=== PATIENT | female | born 1965 | race Caucasian/White ===

== ENCOUNTER 2018-10-30 20:05 | Inpatient (IN) | payer MEDICAID, OTHER ==
--- NOTE | 2018-10-30 20:05 | EDPHY ---
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 She comes by ambulance today reporting a 2 day history of lower abdominal pain and vomiting. Her significant other states that her vomitus has been black. She has not vomited today. She thinks that she might have a urinary tract infection , based upon the way that she feels. She has had UTIs in the past. She has been having difficulty urinating. She has not had a bowel movement for couple of days. Pain is bilateral lower abdominal, dull aching sensation. No back pain. REVIEW OF SYSTEMS: A ten system review of systems was performed and is negative with the exception of the items mentioned in the HPI. Past medical history: 1. Type 2 diabetes, recently started on insulin 2. Left hemiplegia secondary to stroke 3. Blindness 4. Chronic kidney disease next 5. Hypertension Past surgical history: Av fistula right upper extremity, cataract, vitrectomy, section Family history is positive for diabetes and coronary artery disease Social history: She is here with her significant other of 18 years. They are new to this area, have been visiting friends but think that they will relocate here. She has no medical care locally. She does not use tobacco products. She does not drink alcohol. No illicit drugs. General Appearance: Alert. Vital signs reviewed. Blood pressure 172/107. Eyes: Pupils equal and round, no conjunctival injection, no discharge. Anicteric. ENT, Mouth: Mucous membranes are moist, no oropharyngeal erythema or edema. Poor dentition. Neck: No meningeal signs. Respiratory: Lungs are clear to auscultation; no wheezes, rales, or rhonchi. Cardiovascular: Regular rate and rhythm; no murmur, rub, or gallop. Gastrointestinal: Abdomen is soft and nontender, no masses or organomegaly, bowel sounds normal. Skin: Warm and dry, no rashes on exposed skin, normal color. Yellow-green bruises on distal left lower extremity and just above knee laterally on the left. Back: Nontender to palpation over the thoracolumbar spine. No CVAT. Extremities: No lower extremity edema, no calf tenderness or swelling. Right AV fistula with good thrill. Neurological: Alert and oriented. Patient blind. Moving right upper lower extremity easily and equally. Left upper extremity with contracture. Moving right upper and right lower extremity without difficulty. Psychiatric: Normal affect. Constitutional: Initial Vital Signs Temperature (C) 36.7 C 10/30/18 20:17 Heart Rate 85 10/30/18 20:17 Respiratory Rate 16 10/30/18 20:17 Blood Pressure 172/107 H 10/30/18 20:17 O2 Sat (%) 94 10/30/18 20:17 O2 Delivery Mode Room Air Allergies/Adverse Reactions: No Known Allergies Allergy (Unverified 10/30/18 20:34) Home Medications: Medication Instructions Recorded Aspirin EC [Aspirin EC 81 mg (*)] 81 mg PO DAILY 10/30/18 Atorvastatin Calcium [Lipitor 10 10 mg PO HS 10/30/18 mg (*)] Cholecalciferol Vit D3 [Vitamin D3 1,000 units PO DAILY 10/30/18 (*)] Furosemide [Lasix 40 MG (*)] 40 mg PO DAILY 10/30/18 Gabapentin [Neurontin 300 MG (*)] 300 mg PO TID 10/30/18 Insulin Glargine [Lantus 100 10 units SC DAILY 10/30/18 UNITS/ML] Metoprolol Succinate 25 mg PO HS 10/30/18 Sodium Bicarbonate [Na Bicarb] 325 mg PO BID 10/30/18 Vitamin A Palmitate [Vitamin A] 10,000 unit PO 10/30/18 amLODIPine BESYLATE [Amlodipine 10 mg PO DAILY 10/30/18 Besylate] glipiZIDE [Glipizide] 10 mg PO DAILY 10/30/18 hydrALAZINE [Apresoline 10 mg (*)] 10 mg PO TID 10/30/18 Medical Decision Making ED Course/Re-evaluation: 52-year-old female with insulin-dependent diabetes, CKD, HTN, blindness,and left malcolm paresis secondary to stroke. She has not urinated much for the last couple of days and thinks that she might have a bladder infection. Martin catheter was placed with a return of about 300 cc of clear urine. Urinalysis does not indicate urine infection. She is noted to be hyponatremic with a sodium 128. Her BUN is 70 with a creatinine of 3.9. Potassium is 3. I do not know what her previous values were. Will try to obtain this information from the hospital where she was last seen. She has apparently not had any vomiting today, but yesterday her SO noted that her vomit was black. She did not vomit in the emergency department. Hemoglobin and hematocrit are 11.5 and 32.9. I do not think that she is experiencing GI bleeding. She was given 500 mL normal saline in the emergency department. At 8:45 p.m. I spoke with the patient and her significant other and informed them that it was likely that she would need to be admitted to the hospital. She became anxious and tearful and stated that she did not want to stay in the hospital. However, she has agreed to do so. It appears that she has CKD, unclear if it is worse today. She is likely dehydrated because of her recent vomiting, which could be due to uremia, perhaps a viral infection, or GI bleeding. Abdominal exam is unremarkable, I do not suspect intra-abdominal infection such as appendicitis. UA not suggestive of UTI. Decrease urine output might be due to advancing kidney disease or to dehydration. - Data Points Laboratory Results: Laboratory Results 10/30/18 20:20 10/30/18 20:20 Medications Given: Amlodipine Besylate (Norvasc) 10 mg PO DAILY SINDY Stop: 04/29/19 08:59 Last Admin: 10/31/18 09:40 Dose: 10 mg Aspirin Buffered (Aspirin Ec) 81 mg PO DAILY SINDY Stop: 04/29/19 08:59 Last Admin: 10/31/18 09:40 Dose: 81 mg Atorvastatin Calcium (Lipitor) 10 mg PO HS SINDY Stop: 04/28/19 22:29 Last Admin: 10/30/18 23:16 Dose: 10 mg Cholecalciferol (Vitamin D) 1,000 units PO DAILY SINDY Stop: 04/29/19 08:59 Last Admin: 10/31/18 09:40 Dose: 1,000 units Gabapentin (Neurontin) 300 mg PO TID SINDY Stop: 04/28/19 22:29 Last Admin: 10/31/18 17:26 Dose: 300 mg Glipizide (Glucotrol) 10 mg PO DAILY SINDY Stop: 04/29/19 08:59 Last Admin: 10/31/18 09:40 Dose: 10 mg Hydralazine HCl (Apresoline) 10 mg PO TID SINDY Stop: 04/28/19 22:29 Last Admin: 10/31/18 17:26 Dose: 10 mg Insulin Glargine (Lantus Syringe) 10 units SC DAILY SINDY Stop: 04/29/19 08:59 Last Admin: 10/31/18 09:41 Dose: 10 units Insulin Human Lispro (Humalog Lispro) 0 unit SC TIDMEAL SINDY PRN Reason: Protocol Stop: 04/29/19 07:59 Last Admin: 10/31/18 17:29 Dose: 4 units Metoprolol Succinate (Toprol Xl) 25 mg PO HS SINDY Stop: 04/28/19 22:29 Last Admin: 10/30/18 23:16 Dose: 25 mg Sodium Bicarbonate (Na Bicarb) 325 mg PO BID SINDY Stop: 04/28/19 22:29 Last Admin: 10/31/18 09:40 Dose: 325 mg Discontinued Medications Furosemide (Lasix) 40 mg PO DAILY SINDY Stop: 04/29/19 08:59 Last Admin: 10/31/18 09:40 Dose: 40 mg Sodium Chloride (Ns) 1,000 mls @ 0 mls/hr IV EDNOW ONE; Wide Open PRN Reason: Protocol Stop: 10/30/18 20:14 Last Admin: 10/30/18 21:40 Dose: Not Given Sodium Chloride (Ns) 500 mls @ 0 mls/hr IV EDNOW ONE; Wide Open PRN Reason: Protocol Stop: 10/30/18 20:51 Last Admin: 10/30/18 20:52 Dose: 500 mls Sodium Chloride (Ns) 1,000 mls @ 100 mls/hr IV ONCE ONE Stop: 10/31/18 08:29 Last Admin: 10/30/18 23:54 Dose: 1,000 mls Lorazepam (Ativan Injection) 0.5 mg IVP EDNOW ONE Stop: 10/30/18 21:07 Last Admin: 10/30/18 21:14 Dose: 0.5 mg Potassium Chloride (Klor-Con) 30 meq PO Q4 SINDY Stop: 10/31/18 18:01 Last Admin: 10/31/18 17:27 Dose: 30 meq Departure - Departure Disposition: [facility] Acute Clinical Impression: Hyponatremia Chronic kidney disease (CKD) Qualifiers: Chronic kidney disease stage: unspecified stage Qualified Code(s): N18.9 - Chronic kidney disease, unspecified Condition: Fair
[2018-10-30] MEDS ORDERED: NS 1,000 ML IV ONE ×2 (20:13→22:30)
[2018-10-30 20:29] LABS: PLATELET COUNT 292 10^3/uL (150-400)
[2018-10-30] MEDS ORDERED: NS 500 ML IV ONE (20:50)
[2018-10-30] MEDS ORDERED: LORazepam 2 MG/ML INJ IVP ONE (21:06)
[2018-10-30] MEDS ORDERED: HYDROCODONE/APAP 5/325 TAB PO PRN (22:28)
[2018-10-30] MEDS ORDERED: LORazepam 2 MG/ML INJ IVP PRN (22:28)
[2018-10-30] MEDS ORDERED: PROMETHAZINE HCL 25 MG/ML INJ IVP PRN (22:28)
[2018-10-30] MEDS ORDERED: ONDANSETRON 4 MG/2 ML VIAL IVP PRN (22:28)
[2018-10-30] MEDS ORDERED: HYDROmorphONE/DILAUDID 1 MG/ML INJ IVP PRN (22:28)
[2018-10-30] MEDS ORDERED: ONDANSETRON DISINTEGRATING 4 MG TAB PO PRN (22:28)
[2018-10-30] MEDS ORDERED: oxyCODONE IR 5 MG TAB PO PRN (22:28)
[2018-10-30] MEDS ORDERED: LORazepam 0.5 MG TAB PO PRN (22:28)
[2018-10-30] MEDS ORDERED: ACETAMINOPHEN 325 MG TAB PO PRN (22:28)
[2018-10-30] MEDS ORDERED: D50W 25 GM/50 ML SYR IVP PRN (22:31)
--- NOTE | 2018-10-30 22:37 | PDGENHP ---
History and Physical - Chief Complaint n/v/decreased urine output - History of Present Illness 52 yo F with PMH of CKD stage 4, IDDM poorly controlled, poorly controlled HTN and multiple CVAs (she reports at least 4) with resultant left sided hemiparesis presenting after moving here recently from [place] with complaints of 2 days of n/v and poor po intake as well as no urine output for the last 2 days. Patient notes that she had been vomiting profusely for the last 2 days including some vomit that appeared black, but this stopped today and she has not vomited all day. She does have CKD and recently had AV fistula placed for likely dialysis in the near future but so far has not required HD. She normally makes urine but for the last 2 days she reports having no urine output. A graham was placed in the ER and yielded 300ml of urine. She denies any recent chest pain, she has not had fever or chills, she has not had other urinary symptoms such as dysuria. She does not know what her baseline creatinine is but some records sent from [place] that showed a recent creatinine of 4.3, in ER noted to be 3.9. She is legally blind and wheelchair bound and is accompanied by her friend who helps to care for her. They have recently moved to [facility] from [place] but while in the ER patient continues to say she wants to go home to her [facility]. History Information - Allergies/Home Medication List Allergies/Adverse Reactions: No Known Allergies Allergy (Unverified 10/30/18 20:34) Home Medications: Aspirin EC [Aspirin EC 81 mg (*)] 81 mg PO DAILY 10/30/18 [Last Taken 10/30/18] Atorvastatin Calcium [Lipitor 10 mg (*)] 10 mg PO HS 10/30/18 [Last Taken ] Cholecalciferol Vit D3 [Vitamin D3 (*)] 1,000 units PO DAILY 10/30/18 [Last Taken 10/30/18] Furosemide [Lasix 40 MG (*)] 40 mg PO DAILY 10/30/18 [Last Taken 10/30/18] Gabapentin [Neurontin 300 MG (*)] 300 mg PO TID 10/30/18 [Last Taken 10/30/18] Insulin Glargine [Lantus 100 UNITS/ML] 10 units SC DAILY 10/30/18 [Last Taken ] Metoprolol Succinate 25 mg PO HS 10/30/18 [Last Taken Unknown] Sodium Bicarbonate [Na Bicarb] 325 mg PO BID 10/30/18 [Last Taken 10/30/18] Vitamin A Palmitate [Vitamin A] 10,000 unit PO 10/30/18 [Last Taken 10/30/18] amLODIPine BESYLATE [Amlodipine Besylate] 10 mg PO DAILY 10/30/18 [Last Taken ] glipiZIDE [Glipizide] 10 mg PO DAILY 10/30/18 [Last Taken 10/30/18] hydrALAZINE [Apresoline 10 mg (*)] 10 mg PO TID 10/30/18 [Last Taken 10/30/18] I have personally reviewed and updated: family history, medical history, social history, surgical history - Past Medical History CVA (x 4, residual left hemiparesis), diabetes type 2 (insulin dependent), ESRD (not yet on HD), hypertension, hyperlipidemia, psychiatric history (anxiety) Additional medical history: blind - Surgical History Additional surgical history: AV fistula formation. cataracts. c section. vitrectomy - Family History Positive for: diabetes type I (multiple family members including father, brother and sister) - Social History Smoking Status: Never smoked Alcohol Use: None Drug Use: None Additional social history: originally from [place], recently moved to [facility] with friend Review of Systems Review of Systems: ROS: 10pt was reviewed & negative except for what was stated in HPI & below Physical Exam Physical Exam: Temp Pulse Resp BP Pulse Ox 36.7 C 75 16 156/96 H 99 10/30/18 22:10 10/30/18 22:10 10/30/18 22:10 10/30/18 22:10 10/30/18 22:10 Constitutional: chronically ill appearing, unkempt Eyes: other (e/o prior surgeries, bilateral blindness) Ears, Nose, Mouth, Throat: poor dentition, dry mucous membranes Cardiovascular: regular rate and rhythym, no murmur, rub, or gallop, edema Respiratory: no respiratory distress, no rales or rhonchi, clear to auscultation Gastrointestinal: normoactive bowel sounds, soft, non-tender abdomen Genitourinary: no bladder tenderness, graham in urethra Skin: warm, normal color Musculoskeletal: full muscle strength Neurologic: AAOx3 Psychiatric: anxious, agitated, poor insight, poor judgement Lab Data & Imaging Review 10/30/18 20:20 10/30/18 20:20 WBC 12.44 10^3/uL (3.80-9.50) H 10/30/18 20:20 RBC 3.87 10^6/uL (4.18-5.33) L 10/30/18 20:20 Hgb 11.5 g/dL (12.6-16.3) L 10/30/18 20:20 Hct 32.9 % (38.0-47.0) L 10/30/18 20:20 MCV 85.0 fL (81.5-99.8) 10/30/18 20:20 MCH 29.7 pg (27.9-34.1) 10/30/18 20:20 MCHC 35.0 g/dL (32.4-36.7) 10/30/18 20:20 RDW 12.5 % (11.5-15.2) 10/30/18 20:20 Plt Count 292 10^3/uL (150-400) 10/30/18 20:20 MPV 9.8 fL (8.7-11.7) 10/30/18 20:20 Neut % (Auto) 68.5 % (39.3-74.2) 10/30/18 20:20 Lymph % (Auto) 23.2 % (15.0-45.0) 10/30/18 20:20 Ector % (Auto) 7.7 % (4.5-13.0) 10/30/18 20:20 Eos % (Auto) 0.2 % (0.6-7.6) L 10/30/18 20:20 Baso % (Auto) 0.2 % (0.3-1.7) L 10/30/18 20:20 Nucleat RBC Rel Count 0.0 % (0.0-0.2) 10/30/18 20:20 Absolute Neuts (auto) 8.52 10^3/uL (1.70-6.50) H 10/30/18 20:20 Absolute Lymphs (auto) 2.89 10^3/uL (1.00-3.00) 10/30/18 20:20 Absolute Monos (auto) 0.96 10^3/uL (0.30-0.80) H 10/30/18 20:20 Absolute Eos (auto) 0.02 10^3/uL (0.03-0.40) L 10/30/18 20:20 Absolute Basos (auto) 0.02 10^3/uL (0.02-0.10) 10/30/18 20:20 Absolute Nucleated RBC 0.00 10^3/uL (0-0.01) 10/30/18 20:20 Immature Gran % 0.2 % (0.0-1.1) 10/30/18 20:20 Immature Gran # 0.03 10^3/uL (0.00-0.10) 10/30/18 20:20 Sodium 128 mEq/L (135-145) L 10/30/18 20:20 Potassium 3.0 mEq/L (3.5-5.2) L 10/30/18 20:20 Chloride 95 mEq/L (97-110) L 10/30/18 20:20 Carbon Dioxide 19 mEq/l (22-31) L 10/30/18 20:20 Anion Gap 14 mEq/L (6-14) 10/30/18 20:20 BUN 75 mg/dL (7-23) H 10/30/18 20:20 Creatinine 3.9 mg/dL (0.6-1.0) H 10/30/18 20:20 Estimated GFR 12 10/30/18 20:20 Glucose 227 mg/dL (70-100) H 10/30/18 20:20 Calcium 8.2 mg/dL (8.5-10.4) L 10/30/18 20:20 Beta HCG, Qual NEGATIVE 10/30/18 20:20 Urine Color PALE YELLOW 10/30/18 20:30 Urine Appearance CLEAR 10/30/18 20:30 Urine pH 8.0 (5.0-7.5) H 10/30/18 20:30 Ur Specific [place] 1.012 (1.002-1.030) 10/30/18 20:30 Urine Protein 3+ (NEGATIVE) H 10/30/18 20:30 Urine Ketones TRACE (NEGATIVE) H 10/30/18 20:30 Urine Blood NEGATIVE (NEGATIVE) 10/30/18 20:30 Urine Nitrate NEGATIVE (NEGATIVE) 10/30/18 20:30 Urine Bilirubin NEGATIVE (NEGATIVE) 10/30/18 20:30 Urine Urobilinogen NEGATIVE EU (0.2-1.0) 10/30/18 20:30 Ur Leukocyte Esterase NEGATIVE (NEGATIVE) 10/30/18 20:30 Urine RBC 1-3 /hpf (0-3) 10/30/18 20:30 Urine WBC 1-3 /hpf (0-3) 10/30/18 20:30 Ur Epithelial Cells TRACE /lpf (NONE-1+) 10/30/18 20:30 Urine Glucose 3+ (NEGATIVE) H 10/30/18 20:30 Assessment & Plan Assessment: Chronic kidney disease (CKD) (Acute) Hyponatremia (Acute) 52 yo F with hx of multiple CVA, DM2--insulin dependent, ESRD not yet on HD presenting with no urine output reportedly x 2 days following several days of n/ v # ESRD: presumably due to DM/HTN both of which have been poorly controlled. patient has AV fistula in place but states she has not yet required HD, on review of old records most recent creatinine found of 4.3 and now 3.9. Graham revealed 300ml urine. Will monitor overnight, will provide 1L NS and monitor UOP. Renal consulted. No indication for urgent HD currently. # n/v: seems to have resolved, patient states no vomiting today, reports there was black vomit yesterday concerning for GI bleed so if recurs will need GI consultation # DM2: patient reports snf poor control, she was only diagnosed in the last year she states but believes she likely had DM for years. Currently on insulin, will continue her home regimen as well as SSI, A1c pending # HTN: patient notes this too has been poorly controlled. BP has been 150-170 systolic so far here, will resume metoprolol, amlodipine, hydralazine and lasix and monitor # CVA/recurrent: with residual left hemiparesis that is unchanged from baseline , she is wheelchair bound at baseline, continue statin and asa # anxiety: prn benzos as needed # blindness # IP status, will need > 48 hours stay for eval/mgmt of above Patient new to my care. Old records reviewed and summarized as above. Care plan reviewed with ER doctor and further hx obtained from patients friends present at bedside.
[2018-10-30] MEDS: SODIUM BICARBONATE 650 MG TAB PO SCH (23:15)
[2018-10-30] MEDS: METOPROLOL SUCCINATE XR 25 MG TAB PO SCH (23:16)
[2018-10-30] MEDS: GABAPENTIN 300 MG CAP PO SCH (23:16)
[2018-10-30] MEDS: hydrALAZINE 10 MG TAB PO SCH (23:16)
[2018-10-30] MEDS: ATORVASTATIN CALCIUM 10 MG TAB PO SCH (23:16)
[2018-10-31 05:10] LABS: PLATELET COUNT 236 10^3/uL (150-400)
--- NOTE | 2018-10-31 06:20 | PDMN ---
Medical Necessity Medical necessity: Pt meets inpt criteria per MD order and MCG 52 y/o w/CKD stage 4, poorly controlled IDDM and HTN, mult CVAs w/resultant L sided hemiparesis presenting w/2 days of N/V, poor PO intake, and no urine output for last 2 days, admitted w/acute on chronic ESRD, HTN, and hyponatremia Na 128, creatinine 3.0, abnormal UA. Recent AV fistula placement (has not required HD yet). Other comorbidities include anxiety, blindness, and wc bound. Anticipate> 2 MN for ongoing eval/management of above.
[2018-10-31] MEDS: INSULIN LISPRO 100 UNIT/ML SC SCH ×3 (08:34→17:29)
[2018-10-31] MEDS ORDERED: FUROSEMIDE 40 MG TAB PO SCH (09:00)
[2018-10-31] MEDS: CHOLECALCIFEROL VIT D3 1,000 UNITS TAB PO SCH (09:40)
[2018-10-31] MEDS: GABAPENTIN 300 MG CAP PO SCH ×3 (09:40→21:25)
[2018-10-31] MEDS: glipiZIDE 10 MG TAB PO SCH (09:40)
[2018-10-31] MEDS: SODIUM BICARBONATE 650 MG TAB PO SCH ×2 (09:40→21:25)
[2018-10-31] MEDS: hydrALAZINE 10 MG TAB PO SCH ×3 (09:40→21:25)
[2018-10-31] MEDS: ASPIRIN EC 81 MG TAB PO SCH (09:40)
[2018-10-31] MEDS: INSULIN GLARGINE 100 UNITS/ML UNIT SC SCH (09:41)
[2018-10-31] MEDS: POTASSIUM CL 20 MEQ TAB PO SCH ×2 (13:06→17:27)
--- NOTE | 2018-10-31 14:03 | GCON ---
[f rep st] CONSULTATION NEPHROLOGY CONSULTATION DATE OF CONSULTATION: 10/31/2018 REASON FOR CONSULTATION: Acute kidney injury on chronic kidney disease, urinary retention, and gastr ointestinal symptoms. HISTORY OF PRESENT ILLNESS: This is a 52-year-old female with a history of diabetes and multiple com plications, along with chronic kidney disease, who now presents with 48 hours of nausea, vomiting, an d a creatinine of 3.9. History is obtained from the patient, who is a fair historian. Additional hi story is obtained from the medical record, as well as medical records from [facility] in [place], [place]. The patient is a resident of [place], [place]. She states her diabetes has only been diagnosed and controlled for 3 years, but she likely has had it for an extended period of time. The patient has mu ltiple complications of diabetes including blindness, 4 previous strokes, hypertension, neuropathy, a nd her chronic kidney disease. She does see a care connector and has a right forearm fistula in place. I have hospital records from a [facility] that relates to a hospitalization earlier this year on 09/12/2018. At that time, her creatinine appeared to be in the low 4's. The patient's last appointment with her care connector was approximately 1 month ago. She states she was advised she was stable at that time. Her fistula was placed approximately 6 weeks ago. The patient and her boyfriend decided to visit friends in the [place] area approximately 1 month ago. Since that time, they have been residing at the residences of several friends. Forty-eight hours a go, the patient began developing intractable nausea and vomiting. She also developed symptoms of uri nary retention and urgency. She reported to the emergency room yesterday, where her creatinine was 3 .9, and her potassium was 3.0. Her sodium was 128 with a glucose of 227. Her white count was elevat ed at 12.44. The patient had a Martin catheter placed, which did release 300 cc of urine immediately. Overnight, the patient has received IV fluids. Today, she is feeling much better and no longer hav ing GI symptoms. She is making copious amounts of urine, and her creatinine has decreased to 2.9. The patient is quite debilitated with her blindness and her left hemiplegia. She [facility], whom she states has been very supportive and helpful relating to her care. She is thinking about potentially moving to [place] in the future. She has 4 children, living primarily back in [place], [place]. As related to these above issues, we are asked by the hospitalist service to assist t he patient's renal diagnosis and management. PAST MEDICAL HISTORY: 1. Chronic kidney disease attributed to diabetes and hypertension. This appears to be stage 4 to 5. 2. Hypertension. 3. Anxiety. 4. Left hemiparesis and 4 previous cerebrovascular accidents. 5. Legally blind. 6. Diabetes mellitus type 2. 7. History of cataracts. SURGICAL HISTORY: 1. Cataract extraction. 2. section. 3. Right forearm AV fistula placement. 4. Vitrectomy. HOME MEDICATIONS: Aspirin 81 mg daily, atorvastatin 10 mg daily, vitamin D3 1000 units daily, Lasix 40 mg p.o. daily, gabapentin 300 mg three times daily, Lantus insulin 10 units daily, metoprolol succ inate 25 at bedtime, sodium bicarbonate 325 mg twice daily, vitamin A 10,000 units daily, amlodipine 10 mg daily, glipizide 10 mg daily, and hydralazine 10 mg three times daily. FAMILY HISTORY: Positive for diabetes. SOCIAL HISTORY: The patient was born in [place]. She has lived most of her life in [place], [place]. She is not . She has 4 children. She does not smoke cigarettes or drink alcohol. She repo rts that she has a supportive boyfriend. REVIEW OF SYSTEMS: GENERAL: She denies fevers, chills, or sweats. She frequently feels cold in the mornings. She states her appetite had been stable up until 48 hours ago. She denies headaches. Sh mendel is legally blind. She denies rhinitis or sore throat. She denies cough or shortness of breath. C ARDIOVASCULAR: No chest pain or palpitations. GI: Notable for the aforementioned intractable nause a and vomiting for 48 hours. This has resolved this morning. She denies overt abdominal pain or rajni rrhea. : The patient had the aforementioned urologic symptoms. EXTREMITIES: She does have some chronic lower extremity . NEUROLOGICAL: She does have peripheral neuropathy in her feet and hands. She takes gabapentin for this. She has a history of diabetes, but no history of thyroid disease. She has not had skin rashes. PHYSICAL EXAM: GENERAL: At time of exam, the patient is appropriate and alert. VITAL SIGNS: Orrtanna rature 36.9, pulse 66, and blood pressure 176/84. EYES: Sclerae are clear. The patient is legally blind. OROPHARYNX: Clear with dentition in poor repair. NECK: The patient has jugular venous dist ention and evidence of tricuspid regurgitation. No lymphadenopathy or thyromegaly. LUNGS: Clear au scultation bilaterally. CARDIOVASCULAR: Regular rate and rhythm with a systolic murmur at the left lower sternal border. ABDOMEN: Soft and nontender. No organomegaly. Normoactive bowel sounds. : Martin catheter in place. RECTAL: Deferred. EXTREMITIES: She has no ankle edema. Feet are exami juan and without signs of open lesions. INTEGUMENT: Generally clear. NEUROLOGICAL: Notable for her neuropathy. LABORATORY STUDIES: White count 8.65, hematocrit 39.9, and platelet count 236. Sodium 134, potassiu m 3.9, bicarbonate 21, and creatinine 3.4. Magnesium 2.5, calcium 7.5, and phosphorus 3.9. Urinalys is: Specific gravity 1.012, red blood cells 3 to 5, and white blood cells 25 to 50. IMPRESSION/PLAN: 1. Renal failure. The patient has chronic kidney disease. Her creatinine is now down to near 3, wh ich may be her baseline. Previous records do demonstrate a hospitalization where she may have had ac laurent kidney injury. She has a fistula in her right forearm. At this point, she does not need further intravenous hydration. We will continue to monitor. 2. Hypokalemia. I will give the patient a total of 60 mEq of potassium chloride today. Her magnesi um levels are fine. 3. Urinary. The patient appears to have a urinary tract infection. I will review with the primary service relating to appropriate coverage. We will want to get the Martin catheter out when possible, unless it is thought her retention is due to autonomic neuropathy, which is indeed possible. 4. Hypertension. The patient is back on her baseline medicines. We will monitor. 5. Anemia. This is appropriate to her degree of chronic kidney disease. We will monitor. 6. Gastrointestinal. Her nausea and vomiting have abated. 7. Diabetes. The patient will be followed with sliding scale insulin. 8. Gabapentin dosing. This is quite high, although it is chronic and stable. She does not appear t o be having side effects from this. We will monitor. 9. Fistula. The patient has an IV in her right arm. We will have this replaced. 10. Social. The patient is new to this area and has limited resources. If she does choose to perma nently reside here, we will need to ensure she has appropriate care options and housing resources. Thank you for allowing us to participate in this lady's care. We will continue following closely luis godwin. /[id number]/[id number]
--- NOTE | 2018-10-31 16:08 | HOSPPROG ---
Hospitalist Progress Note Assessment/Plan: Subjective Follow-up on nausea and vomiting and abdominal pain. Patient states he was having lower abdominal discomfort with nausea and vomiting over the prior days with this she noted decreased urine output and got concerned. She states that her lower abdominal pain has resolved. Her nausea and vomiting is also improved. We did discuss that she had leukocyte esterase noted in her urinalysis which could indicate a urine infection. Her significant other is at the bedside. They recently moved from [place] from [place]. They moved out here to follow friend who moved out here few years ago. Objective Vital signs as detailed below Physical exam General-awake alert conversant no acute distress, sitting in chair at the bedside, eyes closed Heart-regular rate and rhythm no murmurs Lungs-Clear to auscultation with normal respiratory effort Abdomen-soft nontender nondistended normal bowel sounds -Martin catheter in place with approximately 400 mL of clear urine Extremities-no significant pitting edema Skin-no concerning skin rashes noted Labs as detailed below Assessment and plan Nausea and vomiting-patient's stated that she had similar symptoms for 2 -3 days approximately 1 month ago. Overall improved now. Uncertain if this could be related to transient infectious cause. I am uncertain whether uremia could be contributing. It appears she became hypovolemic from the nausea vomiting thus having low urine output. Her urine output currently appears adequate based upon what I have observed in her Martin catheter bag. Urinary tract infection-possible. It seems like her symptoms subsided on their own however I do not this could have been improved with placement of the Martin catheter. Considering she does not appear septic or toxic I recommend we wait for now till urine culture has been finalized. Hypokalemia-potassium replaced. The Hyponatremia-likely hypovolemic related. Monitor now that IV fluids have been administered. History of CVA-patient apparently with history of recurrent CVAs in the past. She appears to have poorly controlled risk factors. Continue current aspirin and atorvastatin. Hypertension-uncontrolled. Possibly uncontrolled she was unable to keep down her antihypertensives over the past 3-4 days prior to admission. She has been resumed on amlodipine 10 mg daily and hydralazine 10 mg 3 times a day him metoprolol 25 mg nightly. She appears to be tolerating these medications orally currently so will trend blood pressures over the next 24-48 hours to determine if any adjustments need to be made. Chronic kidney disease-suspect stage IV. She does have a fistula in place in the right upper extremity should dialysis be needed however she currently appears to have good urine output now she is better hydrated. Diabetes mellitus type 2-she is currently on Lantus as well as glipizide along with a sliding scale. We may want to consider stopping glipizide with worsening renal function. Anxiety-as needed lorazepam. DVT prophylaxis-compression devices. Disposition-once stabilized she appears stable to be discharged back to home. Her tells me they are running a room in [facility] at the current time. Objective: Vital Signs Temp Pulse Resp BP Pulse Ox 36.9 C 75 18 179/88 H 96 10/31/18 08:00 10/31/18 12:00 10/31/18 12:00 10/31/18 12:00 10/31/18 12:00 Laboratory Results 10/31/18 05:02 10/31/18 05:02 10/30/18 10/31/18 11/01/18 05:59 05:59 05:59 Intake Total 500 250 Output Total 1350 Balance -850 250 ICD10 Worksheet Patient Problems: Problems Problem Status Onset Chronic kidney disease (CKD) Acute Hyponatremia Acute
--- NOTE | 2018-10-31 16:30 | ASMTCMCOM ---
CM Note CM Note Notes: Pt with numerous comorbidities in with ckd, n/v. Pt has diabetes, blindness, L hemiplegia, hx stroke, HTN, anxiety, uses wc at baseline. Nephrology consulting. Pt has a long time partner Tristian. Pt is staying with friends in [place], is a resident of [place] and considering relocating to [place]. Med Data staff Mary Kay to meet with pt since pt has [place] Medicaid. OT rec 24/hr supervision, PT rec home. CM went to provide pt resources but she was sleeping soundly and Tristian was not in room. D/c plan: Pt likely d/c independent with resources. Date Signed: 10/31/2018 04:30 PM Electronically Signed By:NIRMALA Graham
[2018-10-31] MEDS: METOPROLOL SUCCINATE XR 25 MG TAB PO SCH (21:25)
[2018-10-31] MEDS: ATORVASTATIN CALCIUM 10 MG TAB PO SCH (21:25)
[2018-11-01] MEDS: glipiZIDE 10 MG TAB PO SCH (08:48)
[2018-11-01] MEDS: ASPIRIN EC 81 MG TAB PO SCH (08:48)
[2018-11-01] MEDS: SODIUM BICARBONATE 650 MG TAB PO SCH ×2 (08:48→20:28)
[2018-11-01] MEDS: hydrALAZINE 10 MG TAB PO SCH ×3 (08:48→20:28)
[2018-11-01] MEDS: INSULIN LISPRO 100 UNIT/ML SC SCH ×3 (08:48→17:17)
[2018-11-01] MEDS: CHOLECALCIFEROL VIT D3 1,000 UNITS TAB PO SCH (08:48)
[2018-11-01] MEDS: GABAPENTIN 300 MG CAP PO SCH ×3 (08:48→20:28)
[2018-11-01] MEDS: INSULIN GLARGINE 100 UNITS/ML UNIT SC SCH (08:49)
--- NOTE | 2018-11-01 09:40 | SOAPPROG ---
SOAP Progress Note Assessment/Plan: Assessment: EVE better with current therapies HTN overall better on current meds, continue same for now CKD 4, looks like creat at about her baseline hypokalemia developing R denise AVF possible UTI Anemia of CKD Plan: no urgent HD needs continue current anti HTN meds will need follow up with Nephrology, would like to see Cathleen in [place] no bp blood draws or IVs in right arm await urine culture results supplement K check iron studies 11/01/18 09:35 Subjective: significant other at bedside both patient and sig other asked questions, all answered to their satisfaction no cp sob nausea or vomiting eating better no pain today slept well spirits good Objective: Vital Signs Temp Pulse Resp BP Pulse Ox 36.9 C 64 18 182/98 H 98 11/01/18 08:00 11/01/18 08:00 11/01/18 08:00 11/01/18 08:00 11/01/18 08:00 Laboratory Results 10/31/18 05:02 10/31/18 05:02 10/31/18 11/01/18 11/02/18 05:59 05:59 05:59 Intake Total 500 1250 Output Total 1350 1251 Balance -850 -1 Physical Exam - Physical Exam General Appearance: alert, thin Neck: normal inspection Respiratory: No rales, No rhonchi, No wheezing Cardiac/Chest: regular rate, rhythm, systolic murmur, No edema, No friction rub Abdomen: normal bowel sounds, non-tender, soft Skin: warm/dry Extremities: other (developing R forearm AVF, good bruit and thrill), No swelling Neuro/Psych: alert, normal mood/affect, oriented x 3, other (blind) ICD10 Worksheet Patient Problems: Problems Problem Status Onset Chronic kidney disease (CKD) Acute Hyponatremia Acute
[2018-11-01] MEDS ORDERED: POTASSIUM CL 10 MEQ TAB PO ONE (11:27)
--- NOTE | 2018-11-01 15:09 | HOSPPROG ---
Hospitalist Progress Note Assessment/Plan: Nausea and vomiting-seems to have mostly resolved. etiology uncertain, may have been uremia, or viral gastroenteritis. Urinary tract infection-possible. urine growing out aerococcus urinae. started on rocephin for now, will await culture results. Hypokalemia-potassium replaced. cautious replacement in setting of renal disease Hyponatremia- recheck na in am. History of CVA-patient apparently with history of recurrent CVAs in the past. She appears to have poorly controlled risk factors. Continue current aspirin and atorvastatin. Hypertension-uncontrolled. Possibly uncontrolled she was unable to keep down her antihypertensives over the past 3-4 days prior to admission. She has been resumed on amlodipine 10 mg daily and hydralazine 10 mg 3 times a day him metoprolol 25 mg nightly. She appears to be tolerating these medications orally currently so will trend blood pressures over the next 24-48 hours to determine if any adjustments need to be made. Chronic kidney disease-suspect stage IV. She does have a fistula in place in the right upper extremity should dialysis be needed however she currently appears to have good urine output now she is better hydrated. renal following, no need for urgent HD. will follow up with Dr. Connolly as outpatient once discharged. Diabetes mellitus type 2-she is currently on Lantus as well as glipizide along with a sliding scale. We may want to consider stopping glipizide with worsening renal function. Anxiety-as needed lorazepam. DVT prophylaxis-compression devices. Disposition-possible dc home in am. Subjective: feeling better today, no ab pain, making good urine. Objective: Vital Signs Temp Pulse Resp BP Pulse Ox 37.2 C 68 18 145/94 H 98 11/01/18 11:49 11/01/18 11:49 11/01/18 11:49 11/01/18 11:49 11/01/18 11:49 Laboratory Results 10/31/18 05:02 10/31/18 05:02 10/31/18 11/01/18 11/02/18 05:59 05:59 05:59 Intake Total 500 1250 Output Total 1350 1251 Balance -850 -1 - Physical Exam Constitutional: no apparent distress Eyes: anicteric sclera Ears, Nose, Mouth, Throat: moist mucous membranes Cardiovascular: regular rate and rhythym Respiratory: no respiratory distress Gastrointestinal: normoactive bowel sounds Genitourinary: no bladder fullness, graham in urethra Skin: warm Musculoskeletal: full muscle strength Neurologic: AAOx3 Psychiatric: interacting appropriately Lymph, Heme, Immunologic: no cervical LAD ICD10 Worksheet Patient Problems: Problems Problem Status Onset Chronic kidney disease (CKD) Acute Hyponatremia Acute
--- NOTE | 2018-11-01 16:52 | ASMTCMCOM ---
CM Note CM Note Notes: CM met with george and Tristian after they met with Mary Kay. Patient does qualify to apply for Medicaid, Mary Kay will work with them on this process. CM gave them info to [facility] Human Services, food pantry and services info, and [facility] to connect with Primary Care. They are currently renting a room from a friend and will look into the community resources. CM shared info about HCBS services, Tristian states Michelle qualified for these services in the past, CM to consult with Mary Kay to see if we can help with starting the process with [facility]. CM to follow. D/C Plan: Home independent Date Signed: 11/01/2018 04:52 PM Electronically Signed By:Denise Martin
[2018-11-01] MEDS: ATORVASTATIN CALCIUM 10 MG TAB PO SCH (20:28)
[2018-11-01] MEDS: METOPROLOL SUCCINATE XR 25 MG TAB PO SCH (20:28)
[2018-11-02] MEDS ORDERED: SODIUM FERRIC GLUCONAT/SUCROSE 125 MG in NS 100 ML IV ONE (07:49)
[2018-11-02 08:06] VITALS: BP 180/80
[2018-11-02] MEDS: INSULIN LISPRO 100 UNIT/ML SC SCH ×2 (08:09→12:41)
[2018-11-02] MEDS: CHOLECALCIFEROL VIT D3 1,000 UNITS TAB PO SCH (08:11)
[2018-11-02] MEDS: GABAPENTIN 300 MG CAP PO SCH (08:12)
[2018-11-02] MEDS: SODIUM BICARBONATE 650 MG TAB PO SCH (08:12)
[2018-11-02] MEDS: ASPIRIN EC 81 MG TAB PO SCH (08:12)
[2018-11-02] MEDS: glipiZIDE 10 MG TAB PO SCH (08:12)
[2018-11-02] MEDS: hydrALAZINE 10 MG TAB PO SCH (08:13)
[2018-11-02] MEDS: INSULIN GLARGINE 100 UNITS/ML UNIT SC SCH (08:41)
--- NOTE | 2018-11-02 08:57 | SOAPPROG ---
SOAP Progress Note Assessment/Plan: Assessment: EVE better with current therapies HTN overall better on current meds, continue same for now CKD 4, looks like creat at about her baseline hypokalemia, better today developing R denise AVF possible UTI, culture positive for Aerococcus urinae (sensitive to beta lactams) , has been on IV rocephin Anemia of CKD, iron deficiency Plan: no urgent HD needs continue current anti HTN meds will need follow up with Nephrology, would like to see Cathleen in [place] no bp blood draws or IVs in right arm supplement K will give IV iron today, will need to take OTC iron supplement daily as outpatient home when OK with others 11/01/18 09:35 11/02/18 08:54 Subjective: partner not at bedside today pt spirits good no cp sob nausea or vomiting appetite improving energy improving no pain slept well wants to go home Objective: Vital Signs Temp Pulse Resp BP Pulse Ox 36.8 C 62 18 180/80 H 92 11/02/18 08:00 11/02/18 08:00 11/02/18 08:00 11/02/18 08:00 11/02/18 08:00 Laboratory Results 10/31/18 05:02 11/02/18 05:24 11/01/18 11/02/18 11/03/18 05:59 05:59 05:59 Intake Total 1250 250 Output Total 1251 1800 Balance -1 -1550 Physical Exam - Physical Exam General Appearance: alert Neck: normal inspection Respiratory: No rhonchi, No wheezing Cardiac/Chest: regular rate, rhythm, systolic murmur, No edema, No friction rub Abdomen: normal bowel sounds, non-tender, soft Skin: warm/dry Extremities: other (developing R AVF, forearm), No pedal edema Neuro/Psych: alert, normal mood/affect, oriented x 3 ICD10 Worksheet Patient Problems: Problems Problem Status Onset Chronic kidney disease (CKD) Acute Hyponatremia Acute
--- NOTE | 2018-11-02 15:01 | ASDISCHSUM ---
Discharge Information Plan Status:Home with No Needs Medically Cleared to Leave:11/02/2018 Discharge Date:11/02/2018 02:58 PM CM D/C Disposition:Home, Routine, Self-Care ADT D/C Disposition:Home, Routine, Self-Care Projected Discharge Date:11/02/2018 12:00 AM Transportation at D/C:Family Discharge Delay Reason: Follow-Up Date:11/02/2018 12:00 AM Discharge Slot:2 - 12:01 pm - 18:00 pm Final Diagnosis:CKD, Hyponatremia Placement Information Patient Contact Information Contact Name:DOROTHY Relationship:Life Partner Address:[address] [place] [address] Work Phone: [facility] Phone: State/Zip Code:[place] [address] Email: Financial Information Financial Class:Medicaid Primary Plan Desc:[facility] Primary Plan Number:[id number] Secondary Plan Desc: Secondary Plan Number: Assessment Information [facility] CM Progress Note CM Note CM Note Notes: Pt with numerous comorbidities in with ckd, n/v. Pt has diabetes, blindness, L hemiplegia, hx stroke, HTN, anxiety, uses wc at baseline. Nephrology consulting. Pt has a long time partner Tristian. Pt is staying with friends in [facility], is a resident of [place] and [place]oc[place] [employer] Data staff Mary Kay to meet with pt since pt has [place] Medicaid. OT rec 24/hr supervision, PT rec home. DARYA went to provide pt resources but she was sleeping soundly and Tristian was not in room. D/c plan: Pt likely d/c independent with resources. Date Signed: 10/31/2018 04:30 PM Electronically Signed By:NIRMALA Graham [facility] CM Progress Note DARYA Note CM Note Notes: DARYA met with george and Tristian after they met with Mary Kay. Patient does qualify to apply for Medicaid, Mary Kay will work with them on this process. DARYA gave them info to [facility] Human Services, food pantry and services info, and [facility] to connect with Primary Care. They are currently renting a room from a friend and will look into the community resources. DARYA shared info about HCBS services, Tristian states Michelle qualified for these services in the past, CM to consult with Mary Kay to see if we can help with starting the process with [facility]. DARYA to follow. D/C Plan: Home independent Date Signed: 11/01/2018 04:52 PM Electronically Signed By:Denise Martin Intervention Information
--- NOTE | 2018-11-02 15:04 | ASMTCMCOM ---
CM Note CM Note Notes: CM met with patient, partner Tristian, and Telephone Assembler Geeta as patient asked for all the patients medications be sent to [facility] to continue treatment. CM encouraged they schedule an appointment with [facility], Tristian called to schedule and was told they would call him back. CM offered to call to schedule an appointment they prefer to wait to get home and settle and then will schedule. They state they will follow up with Nephrology, Dr. Connolly. Geeta worked on getting a discounts applied for the medications, the total of 7 meds came out to about $130.00. Geeta, [facility] Telephone Assembler and CM spoke with Tristian and patient to determine most critical meds to get them to the first of the month when he gets paid. CM consulted with CM Provider Relations Coordinator DARYA Reyes to assist in mapping $20 for patient meds, Geeta will work with Gael to dispense the meds that are critical, Geeta states she already has the rx's at the [facility] pharmacy. Tristian to transport patient and support with recommended follow up. CM available to follow if any additional discharge needs arise. Date Signed: 11/02/2018 03:03 PM Electronically Signed By:Denise Martin
--- NOTE | 2018-11-02 15:27 | PDDCSUM ---
Discharge Summary Discharge Summary: Discharge diagnosis Nausea and vomiting Poor p.o. Intake oliguria/anuria CKD Legal blindness Coronary artery disease Insulin-dependent diabetes History of CVA Hemiparesis Anemia of renal disease Hyponatremia Patient is a 52-year-old female who recently moved here from [place] originally presented to the emergency room with complaints of 2 days of nausea vomiting with poor intake and lack of urine output. Her creatinine was noted to be 3.4. Martin was placed in the emergency room which yielded 300 mL of urine. Nephrology was consulted who recommended monitoring. Her abdominal pain and nausea vomiting resolved somewhat spontaneously over the next day. She was making good urine and her kidney function seemed to stabilize. Nephrology did not think there is any need for urgent hemodialysis although they thought that she should follow up with them once she was discharged. She was continued on her home doses of antihypertensives and medications for coronary artery disease. She was given a dose of IV iron for her anemia and started on ferrous sulfate tablets. Her urinalysis ultimately grew out Aeromonas species which was sensitive to beta lactams. She had been given a dose of Rocephin and was transitioned over to Keflex to complete a course for urinary tract infection. Her Martin was pulled and she was able to void without issue. She was discharged home to follow up with Dr. Connolly for further management and evaluation of her underlying stage IV CKD. Disposition Home with who is program instructor Consult Nephrology Dr. Connolly and Dr. Mandujano I spent over 30 min on the discharge of this patient
--- NOTE | 2018-11-07 09:58 | PQFORM ---
PHYSICIAN QUERY FORM Needs Your Response This query form is being sent to you to assure this patient record is coded properly. Please respond to the question below: OUTBOARD MOTORBOAT RIGGER QUESTION: Dear Dr. Gan, Acute Kidney Injury was documented within Dr. Gonzalez 10/31 Consultation and also in the SOAP notes dated 11/01-11/02. Patient presented to ER with vomiting, Anuria & Oliguria and a creatine level of 3.9 and started on IV. Martin catheter was placed with return of 300cc of urine. Creatine levels; 10/30= 3.9, 10/31=3.4, 11/02=3.4. Based on the clinical indicators and your professional judgment should the diagnosis of Acute kidney injury, present on admission be included in the Discharge Summary? ____x_Yes No Other more appropriate diagnosis (Please specify) Clinically unable to determine Thank you Emily Pedro, ALFREDO HIM/Coding Dept. INSTRUCTIONS FOR RESPONSE: Answer question by clicking on the "Edit Document" button. Move cursor to area below the stars. When complete, hit "Save." Click on the "Sign" button, then click "Sign" again. Type in your PIN and hit "Enter." MTDD
== END 2018-11-02 14:58 | disposition home or self-care (01) | DRG 469 ==
LOC: F3E 22:36
PROVIDERS: ADMIT Internal Medicine; ATTEND Internal Medicine
PROC: 0T9B70Z Drainage of Bladder with Drainage Device, Via Natural or Artificial Opening (ICD-10-PCS; principal; 2018-10-30)
DX: N17.9 Acute kidney failure, unspecified (principal); E11.22 Type 2 diabetes mellitus with diabetic chronic kidney disease; N39.0 Urinary tract infection, site not specified; I12.9 Hypertensive chronic kidney disease with stage 1 through stage 4 chronic kidney disease, or unspecified chronic kidney disease; N18.4 Chronic kidney disease, stage 4 (severe); R34 Anuria and oliguria; E87.1 Hypo-osmolality and hyponatremia; D63.1 Anemia in chronic kidney disease; E86.0 Dehydration; I69.354 Hemiplegia and hemiparesis following cerebral infarction affecting left non-dominant side; I25.10 Atherosclerotic heart disease of native coronary artery without angina pectoris; H54.8 Legal blindness, as defined in USA; E78.5 Hyperlipidemia, unspecified; F41.9 Anxiety disorder, unspecified; Z79.4 Long term (current) use of insulin; Z99.3 Dependence on wheelchair
CPT/HCPCS: 96374; 97112-GP; 97162-GP; 97166-GO; 97530-GO; 97530-GP; 97535-GO; J0696; J1815; J2060; J2916